=== PATIENT | male | born 2000 | race Caucasian/White ===

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

== ENCOUNTER 2022-07-17 08:30 | Inpatient (IN) ==
[2022-07-17 08:56] LABS: ABS Basophils 0.1 10^3/ul (0-0.2); ABS Eosinophils 0.2 10^3/ul (0-0.6); ABS Lymphocytes 1.8 10^3/ul (1.0-4.8); ABS Monocytes 0.9 10^3/ul (0-0.8); ABS Neutrophils 8.5 10^3/ul (1.5-7.7); Eosinophil % 1.4 %; Hematocrit 45 % (42-52); Hemoglobin 14.4 g/dL (14.0-18.0); Lymphocyte % 15.4 %; Mean Corpuscular HGB Conc 32 g/dL (31-36); Mean Corpuscular Hemoglobin 27 pg (27-31); Mean Corpuscular Volume 84 fL (80-94); Mean Platelet Volume 8.5 fL (7.4-10.4); Platelet Count 320 10^3/uL (150-450); Red Blood Count 5.33 10^6 /uL (4.18-5.48); Red Cell Distribution Width 14 % (10-15); White Blood Count 11.5 10^3/uL (3.5-10.8)
[2022-07-17 09:56] LABS: ALT 55 U/L (7-52); AST 30 U/L (13-39); Acetaminophen < 15 mcg/mL; Albumin 3.8 g/dL (3.2-5.2); Albumin/Globulin Ratio 1.1 (1-3); Alcohol, S < 13 mg/dL (<13); Alkaline Phosphatase 88 U/L (35-149); Anion Gap 10 mmol/L (2-11); Blood Urea Nitrogen 14 mg/dL (6-24); CO2 Carbon Dioxide 25 mmol/L (22-32); Chloride 103 mmol/L (101-111); Globulin 3.6 g/dL (2-4); Glucose 98 mg/dL (70-100); Potassium 5.1 mmol/L (3.5-5.0); Salicylate < 2.50 mg/dL (<30); Sodium 138 mmol/L (135-145); Total Protein 7.4 g/dL (6.4-8.9); eGFR CKD-EPI 131.7 (>60)
[2022-07-17 10:00] LABS: TSH Ultra Thyroid Stim Horm 7.22 mcIU/mL (0.34-5.60)
[2022-07-17 10:05] LABS: Urine Appearance Cloudy; Urine Bilirubin Negative (Negative); Urine Blood Negative (Negative); Urine Color Yellow; Urine Glucose Negative (Negative); Urine Ketones Negative (Negative); Urine Nitrite Negative (Negative); Urine Protein Negative (Negative); Urine Specific Gravity 1.023 (1.002-1.030); Urine Urobilinogen Negative (Negative)
[2022-07-17 10:35] LABS: Urine Benzodiazepine Screen None Detected (None Detect); Urine Cannabinoids Screen None Detected (None Detect); Urine Opiates Screen None Detected (None Detect)
[2022-07-17] MEDS ORDERED: Al Hydrox/Mg Hydrox/Simet LIQ 30 ML UDC PO PRN (11:42)
[2022-07-18] MEDS: Vitamin THERAPEUTIC TAB PO SCH (08:16)
[2022-07-18 08:47] LABS: HDL Cholesterol 41.8 mg/dL
[2022-07-19] MEDS: Vitamin THERAPEUTIC TAB PO SCH (08:54)
[2022-07-20] MEDS: Vitamin THERAPEUTIC TAB PO SCH (07:35)
[2022-07-21] MEDS: Vitamin THERAPEUTIC TAB PO SCH (08:47)
[2022-07-22] MEDS: Vitamin THERAPEUTIC TAB PO SCH (08:44)
[2022-07-23 08:09] VITALS: BP 152/95
[2022-07-23] MEDS: Vitamin THERAPEUTIC TAB PO SCH (09:13)
== END 2022-07-23 18:53 | disposition home or self-care (01) | DRG 750 ==
LOC: ED 08:30 → EDHOLD 11:42 → BSU 13:47
PROVIDERS: ADMIT Psychiatry & Neurology Psychiatry; ATTEND Psychiatry & Neurology Psychiatry

== ENCOUNTER 2022-07-26 02:03 | Inpatient (IN) ==
[2022-07-26 02:53] LABS: ABS Basophils 0.1 10^3/ul (0-0.2); ABS Eosinophils 0.3 10^3/ul (0-0.6); ABS Lymphocytes 2.2 10^3/ul (1.0-4.8); ABS Monocytes 0.9 10^3/ul (0-0.8); ABS Neutrophils 8.6 10^3/ul (1.5-7.7); Eosinophil % 2.5 %; Hematocrit 45 % (42-52); Hemoglobin 14.4 g/dL (14.0-18.0); Lymphocyte % 17.9 %; Mean Corpuscular HGB Conc 32 g/dL (31-36); Mean Corpuscular Hemoglobin 27 pg (27-31); Mean Corpuscular Volume 84 fL (80-94); Mean Platelet Volume 8.7 fL (7.4-10.4); Platelet Count 340 10^3/uL (150-450); Red Blood Count 5.33 10^6 /uL (4.18-5.48); Red Cell Distribution Width 13 % (10-15); Urine Appearance Cloudy; Urine Bilirubin Negative (Negative); Urine Blood Negative (Negative); Urine Color Yellow; Urine Glucose Negative (Negative); Urine Ketones Negative (Negative); Urine Nitrite Negative (Negative); Urine Protein Negative (Negative); Urine Urobilinogen Negative (Negative); White Blood Count 12.2 10^3/uL (3.5-10.8)
[2022-07-26 02:56] LABS: Urine Bacteria Absent (Absent); Urine Red Blood Cell Trace(0-2/hpf) (Absent); Urine Squamous Epithelial Cell Present (Absent); Urine White Blood Cell Trace(0-5/hpf) (Absent)
[2022-07-26 03:11] LABS: Urine Benzodiazepine Screen None Detected (None Detect); Urine Cannabinoids Screen None Detected (None Detect); Urine Opiates Screen None Detected (None Detect)
[2022-07-26 03:13] LABS: ALT 49 U/L (7-52); AST 21 U/L (13-39); Acetaminophen < 15 mcg/mL; Albumin 3.7 g/dL (3.2-5.2); Albumin/Globulin Ratio 1.1 (1-3); Alcohol, S < 13 mg/dL (<13); Alkaline Phosphatase 99 U/L (35-149); Anion Gap 4 mmol/L (2-11); Blood Urea Nitrogen 15 mg/dL (6-24); CO2 Carbon Dioxide 25 mmol/L (22-32); Calcium 9.1 mg/dL (8.6-10.3); Chloride 106 mmol/L (101-111); Globulin 3.4 g/dL (2-4); Glucose 100 mg/dL (70-100); Potassium 4.3 mmol/L (3.5-5.0); Salicylate < 2.50 mg/dL (<30); Sodium 135 mmol/L (135-145); Total Protein 7.1 g/dL (6.4-8.9); eGFR CKD-EPI 135.8 (>60)
[2022-07-26 03:26] LABS: TSH Ultra Thyroid Stim Horm 7.51 mcIU/mL (0.34-5.60)
[2022-07-26] MEDS ORDERED: Al Hydrox/Mg Hydrox/Simet LIQ 30 ML UDC PO PRN (23:59)
[2022-07-27] MEDS: Vitamin THERAPEUTIC TAB PO SCH (10:00)
[2022-07-28] MEDS: Vitamin THERAPEUTIC TAB PO SCH (08:54)
[2022-07-29] MEDS: Vitamin THERAPEUTIC TAB PO SCH (09:39)
[2022-07-30] MEDS: Vitamin THERAPEUTIC TAB PO SCH (09:29)
[2022-07-31] MEDS: Vitamin THERAPEUTIC TAB PO SCH (08:41)
[2022-08-01] MEDS: Vitamin THERAPEUTIC TAB PO SCH (08:40)
[2022-08-02] MEDS: Vitamin THERAPEUTIC TAB PO SCH (08:59)
[2022-08-03] MEDS: Vitamin THERAPEUTIC TAB PO SCH (08:50)
[2022-08-04] MEDS: Vitamin THERAPEUTIC TAB PO SCH (09:00)
[2022-08-05] MEDS: Vitamin THERAPEUTIC TAB PO SCH (08:53)
[2022-08-06] MEDS: Vitamin THERAPEUTIC TAB PO SCH (08:58)
[2022-08-06 09:10] VITALS: BP 156/99
== END 2022-08-06 15:35 | disposition home or self-care (01) | DRG 750 ==
LOC: ED 02:03 → BSU 09:30
PROVIDERS: ADMIT Psychiatry & Neurology Psychiatry; ATTEND Psychiatry & Neurology Psychiatry

== ENCOUNTER 2023-10-17 21:06 | Inpatient (IN) ==
[2023-10-17 22:11] LABS: ABS Basophils 0.1 10^3/uL (0.0-0.1); ABS Eosinophils 0.3 10^3/uL (0.0-0.5); ABS Monocytes 0.7 10^3/uL (0.0-1.1); ABS Neutrophils 7.5 10^3/uL (1.5-7.6); ABS Nucleated RBC 0.01 10^3/ul; Eosinophil % 2.9 %; Hematocrit 46.5 % (38-53); Hemoglobin 15.4 g/dL (13.2-16.3); Lymphocyte % 18.6 %; Mean Corpuscular Hemoglobin 27.2 pg (27-33); Mean Corpuscular Hgb Conc 33.2 g/dL (31-36); Mean Corpuscular Volume 81.8 fL (80-97); Mean Platelet Volume 8.3 fL (7.5-11.2); Nucleated Red Blood Cells % 0.1 %/100WBC (0.0-0.8); Platelet Count 335 10^3/uL (150-450); Red Blood Count 5.68 10^6/uL (4.06-5.63); Red Cell Distribution Width 14.3 % (12-17); White Blood Count 10.6 10^3/uL (3.6-10.2)
[2023-10-17 22:30] LABS: ALT 54 U/L (7-52); AST 37 U/L (13-39); Albumin/Globulin Ratio 0.9 (1-3); Alkaline Phosphatase 78 U/L (35-149); Anion Gap 11 mmol/L (2-16); Blood Urea Nitrogen 14 mg/dL (6-24); CO2 Carbon Dioxide 22 mmol/L (22-32); Calcium 9.5 mg/dL (8.6-10.3); Chloride 104 mmol/L (101-111); Creatinine, Serum 0.91 mg/dL (0.67-1.17); Globulin 4.3 g/dL (2-4); Glucose 97 mg/dL (70-100); Sodium 137 mmol/L (135-145); Total Bilirubin 0.5 mg/dL (0.2-1.0); Total Protein 8.3 g/dL (6.4-8.9); eGFR CKD-EPI 120.7 (>60)
[2023-10-17 22:48] LABS: Acetaminophen < 15 mcg/mL; Alcohol, S < 13 mg/dL (<13); Salicylate < 2.50 mg/dL (<30)
[2023-10-17 23:04] LABS: TSH Ultra Thyroid Stim Horm 2.55 mcIU/mL (0.34-5.60)
[2023-10-18] MEDS ORDERED: Al Hydrox/Mg Hydrox/Simet LIQ 30 ML UDC PO PRN (09:25)
[2023-10-18] MEDS ORDERED: Albuterol HFA INHALER 8 gm MDI INH PRN (12:47)
[2023-10-18] MEDS: Cholecalciferol (VIT D3) 1,000 unit TAB PO SCH (20:29)
[2023-10-19] MEDS: Cholecalciferol (VIT D3) 1,000 unit TAB PO SCH ×2 (08:01→21:16)
[2023-10-19] MEDS: Vitamin THERAPEUTIC TAB PO SCH (08:01)
[2023-10-19 08:07] LABS: HDL Cholesterol 33.1 mg/dL
[2023-10-20] MEDS: Cholecalciferol (VIT D3) 1,000 unit TAB PO SCH ×2 (10:42→20:47)
[2023-10-20] MEDS: Vitamin THERAPEUTIC TAB PO SCH (10:43)
[2023-10-21] MEDS: Vitamin THERAPEUTIC TAB PO SCH (08:32)
[2023-10-21] MEDS: Cholecalciferol (VIT D3) 1,000 unit TAB PO SCH ×2 (08:33→21:31)
[2023-10-21] MEDS ORDERED: Influenza vaccine *QUAD* *2023-24* 0.5 ML SYRINGE IM ONE (09:00)
[2023-10-21] MEDS ORDERED: COVID VAC 23-24(12+)(Moderna) SYR 0.5 ML IM ONE (12:00)
[2023-10-22] MEDS: Cholecalciferol (VIT D3) 1,000 unit TAB PO SCH ×2 (07:52→21:25)
[2023-10-22] MEDS: Vitamin THERAPEUTIC TAB PO SCH (07:53)
[2023-10-23] MEDS: Cholecalciferol (VIT D3) 1,000 unit TAB PO SCH ×2 (08:56→21:04)
[2023-10-23] MEDS: Vitamin THERAPEUTIC TAB PO SCH (08:57)
[2023-10-23 21:01] VITALS: BP 147/97
[2023-10-24] MEDS: Cholecalciferol (VIT D3) 1,000 unit TAB PO SCH (09:44)
[2023-10-24] MEDS: Vitamin THERAPEUTIC TAB PO SCH (09:45)
== END 2023-10-24 17:00 | disposition home or self-care (01) | DRG 750 ==
LOC: ED 21:06 → EDHOLD 10-18 09:25 → BSU 10-18 10:51
PROVIDERS: ADMIT Psychiatry & Neurology Psychiatry; ATTEND Psychiatry & Neurology Psychiatry

== ENCOUNTER 2023-12-12 13:16 | Inpatient (IN) ==
[2023-12-12] MEDS ORDERED: Al Hydrox/Mg Hydrox/Simet LIQ 30 ML UDC PO PRN (15:30)
[2023-12-13 08:30] LABS: HDL Cholesterol 35.8 mg/dL
[2023-12-13] MEDS: Cholecalciferol (VIT D3) 1,000 unit TAB PO SCH (09:54)
[2023-12-20 09:41] VITALS: BP 139/99
== END 2023-12-20 11:28 | disposition home or self-care (01) | DRG 750 ==
LOC: BSU 16:18
PROVIDERS: ADMIT Psychiatry & Neurology Psychiatry; ATTEND Psychiatry & Neurology Psychiatry